=== PATIENT | male | born 2005 | race Caucasian/White ===

== ENCOUNTER 2025-03-16 13:14 | Inpatient (IN) ==
[2025-03-16] MEDS: SODIUM CHLORIDE 0.9% 1,000 ML IV ONE ×2 (13:58→18:15)
[2025-03-16] MEDS: ONDANSETRON INJ 2 MG/ML 2 ML VIAL IV STA ×2 (13:58→20:47)
[2025-03-16 15:01] LABS: Chlamydia pneumoniae PCR Not Detected (NotDetected); Coronavirus 229E PCR Not Detected (NotDetected); Coronavirus CoV-2 (COVID19)PCR Not Detected (NotDetected); Coronavirus HKU1 PCR Not Detected (NotDetected); Coronavirus NL63 PCR Not Detected (NotDetected); Coronavirus OC43PCR Not Detected (NotDetected); Human Metapneumovirus PCR Not Detected (NotDetected); Parainfluenza Virus 1 PCR Not Detected (NotDetected); Parainfluenza Virus 2 PCR Not Detected (NotDetected); Parainfluenza Virus 3 PCR Not Detected (NotDetected); Parainfluenza Virus 4 PCR Not Detected (NotDetected); Respiratory Syncytial VirusPCR Not Detected (NotDetected); Rhinovirus/Enterovirus PCR Not Detected (NotDetected)
[2025-03-16 15:20] LABS: Hematocrit (blood only) 44.6 % (42.0-52.0); Hemoglobin 15.0 g/dL (14.0-18.0); Immature Granulocytes # (auto) 0.11 K/uL (0.01-0.20); Immature Granulocytes % (auto) 0.5 %; Mean Corpuscular Hemoglobin 29.7 pg (25.0-34.0); Mean Corpuscular Volume 88.3 fL (80.0-100.0); Platelet Count 271 K/uL (130-400); RDW Standard Deviation 44.9 fL (36.4-46.3); Red Blood Count 5.05 M/uL (4.70-6.10); White Blood Count 22.17 K/ul (4.8-10.8)
[2025-03-16 15:46] LABS: Appearance Urine Clear (Clear); Bacteria Urine Automated None Seen (None Seen); Epithelial Cell Urine Auto 0-2 /hpf (0-2); Glucose Urine UA Negative (Negative); RBC Urine Automated >20 /hpf (0-2); WBC Urine Automated 0-5 /hpf (0-5)
[2025-03-16] MEDS: SODIUM CHLORIDE 0.9% 250 ML IV ONE (16:59)
[2025-03-16 17:29] LABS: Albumin Level 4.3 gm/dl (3.4-5.0); Anion Gap 21 (3-11); Bilirubin,Total 0.9 mg/dl (0.2-1.0); Calcium 8.0 mg/dl (8.6-10.3); Carbon Dioxide 13 mmol/L (21-32); Chloride 108 mmol/L (98-107); Potassium 3.6 mmol/L (3.5-5.1); Sodium 142 mmol/L (136-145)
[2025-03-16 17:37] LABS: Alanine Aminotransferase 23 U/L (7-52); Albumin Globulin Ratio 2.0 (0.9-2); Alkaline Phosphatase 83 U/L (34-104); Blood Urea Nitrogen 13 mg/dl (6-23); Globulin 2.2 gm/dl (2.5-4.0); Glucose 40 mg/dl (70-99(Fasting)); Total Protein 6.5 gm/dl (6.0-8.3)
[2025-03-16] MEDS: DEXTROSE 50% 50 ML SYRINGE IV ONE (17:48)
--- NOTE | 2025-03-16 17:48 | Emergency Department Note ---
Impression & Plan Hypotension, Sepsis, Nausea vomiting and diarrhea ED Provider Note CHIEF COMPLAINT: Vomiting, diarrhea x 2 days HISTORY OF PRESENTING ILLNESS: Patient is a 19-year-old male who presents to the emergency department today for complaints of vomiting and diarrhea x 2 days. He has a history of H neuromuscular disorders. He reports he has been unable to keep anything down since onset. He denies any sick contact. He denies eating any concerning food. He reports moving his bowels normally open to that point. Patient denies chest pain, sob, breathing difficulties, abdominal pain, headache, fevers/chills, blood in stool or urine, any recent illness, or any recent travel. REVIEW OF SYSTEMS: See HPI for pertinent positives and pertinent negatives. ALLERGIES: See below MEDICATIONS: See below PAST MEDICAL HISTORY: See below PHYSICAL EXAM: VITALS: Vitals are noted on the nurse's note and reviewed by myself. GENERAL: Non toxic, in no acute distress, non-diaphoretic. SKIN: Capillary refill <2 sec. EYES: PERRLA. EOMI. Conjunctivae without injection, sclerae without icterus. NOSE: Patent without discharge. MOUTH: Mucous membranes moist. Uvula midline. Airway patent. NECK: Supple without nuchal rigidity. HEART: Regular rate and rhythm without murmurs gallops or rubs. LUNGS: Clear to auscultation bilaterally without wheezes, rales or rhonchi. No retractions or accessory muscle use. ABDOMEN: Abdomen is abnormally shaped due to spine curvature. Difficulty in assessing. Positive bowel sounds x 4. Normal tympanic percussion. Soft, nontender to palpation. No masses or hepatosplenomegaly. Stallings sign negative. No CVA tenderness. No guarding, rigidity, or rebound tenderness. No focal RLQ or LLQ tenderness. MUSCULOSKELETAL: Neuromuscular disorder with severely curvature of spine. No gross musculoskeletal defects. NEURO: Patient was alert and oriented. No focal neurological deficits. DIFFERENTIAL DIAGNOSIS: Differential diagnosis includes appendicitis, diverticulitis, constipation, gastroenteritis, bowel obstruction, cholecystitis, appendicitis, inflammatory bowel disease, renal colic, PUD, biliary pathology, pancreatitis, mesenteric ischemia, aortic pathology, infection, genitourinary, UTI, perforated viscus, among others. ED COURSE AND MEDICAL DECISION MAKING: HISTORY FROM INDEPENDENT HISTORIAN: History was provided by the patient and his cousin who is at bedside and secondary historian. MONITOR: Continuous telemetry monitor: Order was placed for continuous telemetry monitor. Patient was placed on the telemetry monitor and continuous pulse ox. Patient was noted to be in normal sinus rhythm at an initial rate of 138 bpm per my interpretation. INTERPRETATION OF LABS: I interpreted the labs with full lab results as below in the lab section of this note. Laboratory results pertinent to the emergent complaint are discussed in the MDM section below. The patient was advised to follow up with their PCP and/or specialist(s) for further outpatient monitoring and management of any abnormal results. INTERPRETATION OF IMAGING: Imaging studies were interpreted by myself and read by radiology as per the imaging section of this note. The patient was advised to follow up with their PCP and/or specialist(s) for further outpatient management of any non-emergent abnormal findings. CHRONIC MEDICAL/SOCIAL CONDITIONS AFFECTING CARE: No social concerns were identified as barriers to patients care. ESCALATION OF CARE CONSIDERED: I considered admission on this patient due to leukocytosis, hypotension, tachycardia, sepsis, and no direct source of infection. CONSULTATIONS: I had a meaningful discussion about this patient with Dr. Monzon who agrees with my assessment and the treatment plan. I consulted with Nima Hickey PA-C who accepts the patient for admission. SUMMARY: I examined the patient for complaints of vomiting. A physical exam and history were performed. Nursing notes, EMR, and medication list were personally reviewed. On evaluation the patient reports vomiting X2 days. Denies any abdominal pain and agreed to defer CT abdomen at this time. Patient afebrile on arrival but tachycardic at 138 bpm and slightly hypotensive at 99/66. Given Zofran 4mg and 1L NSS with significant improvement in nausea but remained hypotensive. Patient given another 250ml bolus, again with no improvement in hypotension, yet worsening. Last BP noted to be 80/45. This was 3 hours after the initial bolus of 1250ml. Patient was given another 1L NSS with improvement in BP, HR. BP 119/51 and HR 114. Patient was showing no signs of poor perfusion, renal function was stable and was producing good urine. There was a delay in obtaining labs and running labs due to the patient poor venous access and needed labs redrawn multiple times. CMP resulted with a blood sugar of 40. Patient was asymptomatic, alert and oriented, and speaking. Patient was given some juice and was able to tolerate. Repeat blood sugar was only 47. Patient was given D10 250 mL liter bolus. Repeat blood sugar was then 141. CBC resulted with WBC of 22. Procalcitonin was normal. Lactate and blood cultures ordered but delay with drawing due to poor venous access. No anemia or thrombocytopenia. CMP otherwise showed no emergent findings. With the patient's elevated white blood cell count and no other source of infection CT scan of the abdomen pelvis and chest x-ray were ordered. CT of the abdomen and pelvis showed no acute findings. Chest x-ray showed normal chest. Urinalysis showed negative for nitrates, leukocytes, bacteria. With the patients presentation, leukocytosis, hypotension, and no direct source of infection I feel the patient will benefit from admission to the hospital for further workup and observation. I consulted with Nima Hickey PA-C who accepts the patient for admission. DIAGNOSIS: Vomiting, hypotension, sepsis, TREATMENT PLAN/DISCHARGE INSTRUCTIONS: Admit to hospitalist services. The chart was completed utilizing [employer] voice recognition software.Grammatical errors, random word insertions, pronoun errors, and incomplete sentences are an occasional consequence of this system due to software limitations, ambient noise, and hardware issues.Any formal questions or concerns about the content, text, or information contained within the body of this dictation should be directly addressed to the physician for clarification. Past Med/Surg History Problem List (Updated 03/17/25 @ 16:21 by BETTE Grullon) Spinal muscular atrophy Hypotension (Acute) Hypoglycemia Viral gastroenteritis Sepsis (Acute) Nausea vomiting and diarrhea (Acute) Social History Smoking Status: Never smoker Hx Alcohol Use: No Hx Substance Use: No Preferred Language: Macanese Communication Ability: Effective Primary Care Provider Required: No Beliefs That Will Affect Care: None Current Living Situation: Other Current Living Situation Comment: 24 hr nursing/aid care at private dorm room at [facility] Other Information That Helps Us Care for You: No Feels Safe at Home: Yes Safety Concerns: Feels Safe At This Time Assistive Devices: Glasses and Wheelchair Allergies Allergies Allergy/AdvReac Type Severity Reaction Status Date / Time No Known Allergies Allergy Unverified 03/16/25 15:30 Home Meds Home Medications Medication Instructions Recorded Confirmed risdiplam 0.75 mg/mL oral solution 0.75 mg PO UD 03/16/25 03/16/25 (Evrysdi) Previous Rx's Medication Instructions Recorded ondansetron 4 mg disintegrating 4 mg PO Q8H PRN nausea and 03/17/25 tablet vomiting #14 tabs Results & Data (ED) Vital Signs Vital Signs - 24 hr 03/16/25 16:34 03/16/25 18:00 03/16/25 18:30 Pulse Rate 133 H Pulse Rate [Apical] 141 H Pulse Rate [Left Finger] 125 H Pulse Rhythm [Apical] Regular Respiratory Rate 18 30 H 19 Respiratory Effort / Characteristics Non-Labored Non-Labored Spontaneous Respiratory Depth Normal Normal Respiratory Pattern Regular Blood Pressure 103/67 Blood Pressure [Right Arm] 96/59 L 80/45 L Blood Pressure Mean 76 Blood Pressure Mean [Right Arm] 71 56 Blood Pressure Position [Right Arm] Sitting Pulse Oximetry 96 96 96 Oxygen Delivery Method Room Air Room Air Room Air 03/16/25 18:32 Pulse Rate 134 H Pulse Rate [Apical] Pulse Rate [Left Finger] Pulse Rhythm [Apical] Respiratory Rate Respiratory Effort / Characteristics Respiratory Depth Respiratory Pattern Blood Pressure Blood Pressure [Right Arm] Blood Pressure Mean Blood Pressure Mean [Right Arm] Blood Pressure Position [Right Arm] Pulse Oximetry Oxygen Delivery Method Laboratory Data 03/17/25 05:31 03/17/25 05:31 Lab Results 03/16/25 03/16/25 03/16/25 Range/Units 13:53 15:06 15:28 WBC 22.17 H (4.8-10.8) K/ul RBC 5.05 (4.70-6.10) M/uL Hgb 15.0 (14.0-18.0) g/dL POC Hgb (14.0-18.0) g/dl Hct 44.6 (42.0-52.0) % POC Hct (42-52) % MCV 88.3 (80.0-100.0) fL MCH 29.7 (25.0-34.0) pg MCHC 33.6 (32.0-36.0) g/dL RDW Std Deviation 44.9 (36.4-46.3) fL RDW Coeff of Al 13.9 (11.5-14.5) % Plt Count 271 (130-400) K/uL MPV 11.4 (9.4-12.4) fL Immature Gran % (Auto) 0.5 % Neut % (Auto) 86.9 % Lymph % (Auto) 3.8 % Valley % (Auto) 8.1 % Eos % (Auto) 0.3 % Baso % (Auto) 0.4 % Neut # (Auto) 19.27 H (1.40-6.50) K/uL Lymph # (Auto) 0.84 L (1.20-3.40) K/uL Valley # (Auto) 1.80 H (0.11-0.59) K/uL Eos # (Auto) 0.07 (0.00-0.50) K/uL Baso # (Auto) 0.08 (0.00-0.20) K/uL Immature Gran # (Auto) 0.11 (0.01-0.20) K/uL POC Sodium (135-144) mmol/L Sodium Cancelled POC Potassium (3.3-5.0) mmol/L Potassium Cancelled POC Chloride (101-112) mmol/L Chloride Cancelled Carbon Dioxide Cancelled POC Total CO2 (24-31) mmol/L Anion Gap Cancelled POC Anion Gap (16-25) mmol/L POC BUN (7-18) mg/dl BUN Cancelled Creatinine Cancelled POC Creatinine (0.6-1.3) mg/dl Est Cr Clr Drug Dosing Cancelled eGFR Cancelled BUN/Creatinine Ratio Cancelled Glucose Cancelled POC Glucose (70-99) mg/dl POC Glucose (other) (70-99) mg/dl Lactate (0.4-2.0) mmol/L Calcium Cancelled POC Ioniz Calcium Lizette (1.12-1.32) mmol/l Magnesium (1.7-2.4) mg/dl Total Bilirubin Cancelled AST Cancelled ALT Cancelled Alkaline Phosphatase Cancelled C-Reactive Protein Cancelled Total Protein Cancelled Albumin Cancelled Globulin Cancelled Albumin/Globulin Ratio Cancelled Procalcitonin 0.15 (0-0.5) ng/ml Random Cortisol mcg/dl Urine Color Yellow Urine Appearance Clear (Clear) Urine pH 5.5 (4.5-7.5) Ur Specific [place] 1.029 (1.000-1.030) Urine Protein 1+ H (Negative) Urine Glucose (UA) Negative (Negative) Urine Ketones 4+ H (Negative) Urine Blood 2+ H (Negative) Urine Nitrite Negative (Negative) Urine Bilirubin Negative (Negative) Urine Urobilinogen Negative (Negative) Ur Leukocyte Esterase Negative (Negative) Urine WBC (Auto) 0-5 (0-5) /hpf Urine RBC (Auto) >20 H (0-2) /hpf U Hyaline Cast (Auto) 3-5 H (0-2) /lpf U Epithel Cells (Auto) 0-2 (0-2) /hpf Urine Bacteria (Auto) None Seen (None Seen) Urine Comment Adenovirus (PCR) Not Detected (NotDetected) B. pertussis DNA (PCR) Not Detected (NotDetected) B.parapertussis DNA PCR Not Detected (NotDetected) C. pneumoniae DNA (PCR) Not Detected (NotDetected) Coronavirus OC43 (PCR) Not Detected (NotDetected) Coronavirus HKU1 (PCR) Not Detected (NotDetected) Coronavirus 229E (PCR) Not Detected (NotDetected) SARS-CoV-2 (PCR) Not Detected (NotDetected) Coronavirus NL63 (PCR) Not Detected (NotDetected) Human Metapneumovir PCR Not Detected (NotDetected) Influenza Type A (PCR) Not Detected (NotDetected) Influenza Type B (PCR) Not Detected (NotDetected) M. pneumoniae (PCR) Not Detected (NotDetected) Parainfluenza 1 (PCR) Not Detected (NotDetected) Parainfluenza 2 (PCR) Not Detected (NotDetected) Parainfluenza 3 (PCR) Not Detected (NotDetected) Parainfluenza 4 (PCR) Not Detected (NotDetected) RSV (PCR) Not Detected (NotDetected) Entero/Rhino (PCR) Not Detected (NotDetected) 03/16/25 03/16/25 03/16/25 Range/Units 16:39 16:39 16:39 WBC (4.8-10.8) K/ul RBC (4.70-6.10) M/uL Hgb (14.0-18.0) g/dL POC Hgb (14.0-18.0) g/dl Hct (42.0-52.0) % POC Hct (42-52) % MCV (80.0-100.0) fL MCH (25.0-34.0) pg MCHC (32.0-36.0) g/dL RDW Std Deviation (36.4-46.3) fL RDW Coeff of Al (11.5-14.5) % Plt Count (130-400) K/uL MPV (9.4-12.4) fL Immature Gran % (Auto) % Neut % (Auto) % Lymph % (Auto) % [place] % (Auto) % Eos % (Auto) % Baso % (Auto) % Neut # (Auto) (1.40-6.50) K/uL Lymph # (Auto) (1.20-3.40) K/uL [place] # (Auto) (0.11-0.59) K/uL Eos # (Auto) (0.00-0.50) K/uL Baso # (Auto) (0.00-0.20) K/uL Immature Gran # (Auto) (0.01-0.20) K/uL POC Sodium (135-144) mmol/L Sodium Cancelled 142 POC Potassium (3.3-5.0) mmol/L Potassium Cancelled 3.6 POC Chloride (101-112) mmol/L Chloride Cancelled Carbon Dioxide POC Total CO2 (24-31) mmol/L Anion Gap POC Anion Gap (16-25) mmol/L POC BUN (7-18) mg/dl BUN Creatinine POC Creatinine (0.6-1.3) mg/dl Est Cr Clr Drug Dosing eGFR BUN/Creatinine Ratio Glucose POC Glucose (70-99) mg/dl POC Glucose (other) (70-99) mg/dl Lactate (0.4-2.0) mmol/L Calcium POC Ioniz Calcium Lizette (1.12-1.32) mmol/l Magnesium (1.7-2.4) mg/dl Total Bilirubin AST ALT Alkaline Phosphatase C-Reactive Protein Total Protein Albumin Globulin Albumin/Globulin Ratio Procalcitonin (0-0.5) ng/ml Random Cortisol mcg/dl Urine Color Urine Appearance (Clear) Urine pH (4.5-7.5) Ur Specific [place] (1.000-1.030) Urine Protein (Negative) Urine Glucose (UA) (Negative) Urine Ketones (Negative) Urine Blood (Negative) Urine Nitrite (Negative) Urine Bilirubin (Negative) Urine Urobilinogen (Negative) Ur Leukocyte Esterase (Negative) Urine WBC (Auto) (0-5) /hpf Urine RBC (Auto) (0-2) /hpf U Hyaline Cast (Auto) (0-2) /lpf U Epithel Cells (Auto) (0-2) /hpf Urine Bacteria (Auto) (None Seen) Urine Comment Adenovirus (PCR) (NotDetected) B. pertussis DNA (PCR) (NotDetected) B.parapertussis DNA PCR (NotDetected) C. pneumoniae DNA (PCR) (NotDetected) Coronavirus OC43 (PCR) (NotDetected) Coronavirus HKU1 (PCR) (NotDetected) Coronavirus 229E (PCR) (NotDetected) SARS-CoV-2 (PCR) (NotDetected) Coronavirus NL63 (PCR) (NotDetected) Human Metapneumovir PCR (NotDetected) Influenza Type A (PCR) (NotDetected) Influenza Type B (PCR) (NotDetected) M. pneumoniae (PCR) (NotDetected) Parainfluenza 1 (PCR) (NotDetected) Parainfluenza 2 (PCR) (NotDetected) Parainfluenza 3 (PCR) (NotDetected) Parainfluenza 4 (PCR) (NotDetected) RSV (PCR) (NotDetected) Entero/Rhino (PCR) (NotDetected) 03/16/25 03/16/25 03/16/25 Range/Units 16:39 16:39 16:39 WBC (4.8-10.8) K/ul RBC (4.70-6.10) M/uL Hgb (14.0-18.0) g/dL POC Hgb (14.0-18.0) g/dl Hct (42.0-52.0) % POC Hct (42-52) % MCV (80.0-100.0) fL MCH (25.0-34.0) pg MCHC (32.0-36.0) g/dL RDW Std Deviation (36.4-46.3) fL RDW Coeff of Al (11.5-14.5) % Plt Count (130-400) K/uL MPV (9.4-12.4) fL Immature Gran % (Auto) % Neut % (Auto) % Lymph % (Auto) % [place] % (Auto) % Eos % (Auto) % Baso % (Auto) % Neut # (Auto) (1.40-6.50) K/uL Lymph # (Auto) (1.20-3.40) K/uL [place] # (Auto) (0.11-0.59) K/uL Eos # (Auto) (0.00-0.50) K/uL Baso # (Auto) (0.00-0.20) K/uL Immature Gran # (Auto) (0.01-0.20) K/uL POC Sodium (135-144) mmol/L Sodium POC Potassium (3.3-5.0) mmol/L Potassium POC Chloride (101-112) mmol/L Chloride 108 H Carbon Dioxide Cancelled 13 L POC Total CO2 (24-31) mmol/L Anion Gap Cancelled 21 H POC Anion Gap (16-25) mmol/L POC BUN (7-18) mg/dl BUN Cancelled Creatinine POC Creatinine (0.6-1.3) mg/dl Est Cr Clr Drug Dosing eGFR BUN/Creatinine Ratio Glucose POC Glucose (70-99) mg/dl POC Glucose (other) (70-99) mg/dl Lactate (0.4-2.0) mmol/L Calcium POC Ioniz Calcium Lizette (1.12-1.32) mmol/l Magnesium (1.7-2.4) mg/dl Total Bilirubin AST ALT Alkaline Phosphatase C-Reactive Protein Total Protein Albumin Globulin Albumin/Globulin Ratio Procalcitonin (0-0.5) ng/ml Random Cortisol mcg/dl Urine Color Urine Appearance (Clear) Urine pH (4.5-7.5) Ur Specific [place] (1.000-1.030) Urine Protein (Negative) Urine Glucose (UA) (Negative) Urine Ketones (Negative) Urine Blood (Negative) Urine Nitrite (Negative) Urine Bilirubin (Negative) Urine Urobilinogen (Negative) Ur Leukocyte Esterase (Negative) Urine WBC (Auto) (0-5) /hpf Urine RBC (Auto) (0-2) /hpf U Hyaline Cast (Auto) (0-2) /lpf U Epithel Cells (Auto) (0-2) /hpf Urine Bacteria (Auto) (None Seen) Urine Comment Adenovirus (PCR) (NotDetected) B. pertussis DNA (PCR) (NotDetected) B.parapertussis DNA PCR (NotDetected) C. pneumoniae DNA (PCR) (NotDetected) Coronavirus OC43 (PCR) (NotDetected) Coronavirus HKU1 (PCR) (NotDetected) Coronavirus 229E (PCR) (NotDetected) SARS-CoV-2 (PCR) (NotDetected) Coronavirus NL63 (PCR) (NotDetected) Human Metapneumovir PCR (NotDetected) Influenza Type A (PCR) (NotDetected) Influenza Type B (PCR) (NotDetected) M. pneumoniae (PCR) (NotDetected) Parainfluenza 1 (PCR) (NotDetected) Parainfluenza 2 (PCR) (NotDetected) Parainfluenza 3 (PCR) (NotDetected) Parainfluenza 4 (PCR) (NotDetected) RSV (PCR) (NotDetected) Entero/Rhino (PCR) (NotDetected) 03/16/25 03/16/25 03/16/25 Range/Units 16:39 16:39 16:39 WBC (4.8-10.8) K/ul RBC (4.70-6.10) M/uL Hgb (14.0-18.0) g/dL POC Hgb (14.0-18.0) g/dl Hct (42.0-52.0) % POC Hct (42-52) % MCV (80.0-100.0) fL MCH (25.0-34.0) pg MCHC (32.0-36.0) g/dL RDW Std Deviation (36.4-46.3) fL RDW Coeff of Al (11.5-14.5) % Plt Count (130-400) K/uL MPV (9.4-12.4) fL Immature Gran % (Auto) % Neut % (Auto) % Lymph % (Auto) % [place] % (Auto) % Eos % (Auto) % Baso % (Auto) % Neut # (Auto) (1.40-6.50) K/uL Lymph # (Auto) (1.20-3.40) K/uL [place] # (Auto) (0.11-0.59) K/uL Eos # (Auto) (0.00-0.50) K/uL Baso # (Auto) (0.00-0.20) K/uL Immature Gran # (Auto) (0.01-0.20) K/uL POC Sodium (135-144) mmol/L Sodium POC Potassium (3.3-5.0) mmol/L Potassium POC Chloride (101-112) mmol/L Chloride Carbon Dioxide POC Total CO2 (24-31) mmol/L Anion Gap POC Anion Gap (16-25) mmol/L POC BUN (7-18) mg/dl BUN 13 Creatinine Cancelled < 0.20 L POC Creatinine (0.6-1.3) mg/dl Est Cr Clr Drug Dosing Cancelled Not Reportable eGFR Cancelled BUN/Creatinine Ratio Glucose POC Glucose (70-99) mg/dl POC Glucose (other) (70-99) mg/dl Lactate (0.4-2.0) mmol/L Calcium POC Ioniz Calcium [place]ette (1.12-1.32) mmol/l Magnesium (1.7-2.4) mg/dl Total Bilirubin AST ALT Alkaline Phosphatase C-Reactive Protein Total Protein Albumin Globulin Albumin/Globulin Ratio Procalcitonin (0-0.5) ng/ml Random Cortisol mcg/dl Urine Color Urine Appearance (Clear) Urine pH (4.5-7.5) Ur Specific [place] (1.000-1.030) Urine Protein (Negative) Urine Glucose (UA) (Negative) Urine Ketones (Negative) Urine Blood (Negative) Urine Nitrite (Negative) Urine Bilirubin (Negative) Urine Urobilinogen (Negative) Ur Leukocyte Esterase (Negative) Urine WBC (Auto) (0-5) /hpf Urine RBC (Auto) (0-2) /hpf U Hyaline Cast (Auto) (0-2) /lpf U Epithel Cells (Auto) (0-2) /hpf Urine Bacteria (Auto) (None Seen) Urine Comment Adenovirus (PCR) (NotDetected) B. pertussis DNA (PCR) (NotDetected) B.parapertussis DNA PCR (NotDetected) C. pneumoniae DNA (PCR) (NotDetected) Coronavirus OC43 (PCR) (NotDetected) Coronavirus HKU1 (PCR) (NotDetected) Coronavirus 229E (PCR) (NotDetected) SARS-CoV-2 (PCR) (NotDetected) Coronavirus NL63 (PCR) (NotDetected) Human Metapneumovir PCR (NotDetected) Influenza Type A (PCR) (NotDetected) Influenza Type B (PCR) (NotDetected) M. pneumoniae (PCR) (NotDetected) Parainfluenza 1 (PCR) (NotDetected) Parainfluenza 2 (PCR) (NotDetected) Parainfluenza 3 (PCR) (NotDetected) Parainfluenza 4 (PCR) (NotDetected) RSV (PCR) (NotDetected) Entero/Rhino (PCR) (NotDetected) 03/16/25 03/16/25 03/16/25 Range/Units 16:39 16:39 16:39 WBC (4.8-10.8) K/ul RBC (4.70-6.10) M/uL Hgb (14.0-18.0) g/dL POC Hgb (14.0-18.0) g/dl Hct (42.0-52.0) % POC Hct (42-52) % MCV (80.0-100.0) fL MCH (25.0-34.0) pg MCHC (32.0-36.0) g/dL RDW Std Deviation (36.4-46.3) fL RDW Coeff of Al (11.5-14.5) % Plt Count (130-400) K/uL MPV (9.4-12.4) fL Immature Gran % (Auto) % Neut % (Auto) % Lymph % (Auto) % [place] % (Auto) % Eos % (Auto) % Baso % (Auto) % Neut # (Auto) (1.40-6.50) K/uL Lymph # (Auto) (1.20-3.40) K/uL [place] # (Auto) (0.11-0.59) K/uL Eos # (Auto) (0.00-0.50) K/uL Baso # (Auto) (0.00-0.20) K/uL Immature Gran # (Auto) (0.01-0.20) K/uL POC Sodium (135-144) mmol/L Sodium POC Potassium (3.3-5.0) mmol/L Potassium POC Chloride (101-112) mmol/L Chloride Carbon Dioxide POC Total CO2 (24-31) mmol/L Anion Gap POC Anion Gap (16-25) mmol/L POC BUN (7-18) mg/dl BUN Creatinine POC Creatinine (0.6-1.3) mg/dl Est Cr Clr Drug Dosing eGFR Not Reportable BUN/Creatinine Ratio Cancelled TNP Glucose Cancelled 40 L* POC Glucose (70-99) mg/dl POC Glucose (other) (70-99) mg/dl Lactate (0.4-2.0) mmol/L Calcium Cancelled POC Ioniz Calcium [place]ette (1.12-1.32) mmol/l Magnesium (1.7-2.4) mg/dl Total Bilirubin AST ALT Alkaline Phosphatase C-Reactive Protein Total Protein Albumin Globulin Albumin/Globulin Ratio Procalcitonin (0-0.5) ng/ml Random Cortisol mcg/dl Urine Color Urine Appearance (Clear) Urine pH (4.5-7.5) Ur Specific [place] (1.000-1.030) Urine Protein (Negative) Urine Glucose (UA) (Negative) Urine Ketones (Negative) Urine Blood (Negative) Urine Nitrite (Negative) Urine Bilirubin (Negative) Urine Urobilinogen (Negative) Ur Leukocyte Esterase (Negative) Urine WBC (Auto) (0-5) /hpf Urine RBC (Auto) (0-2) /hpf U Hyaline Cast (Auto) (0-2) /lpf U Epithel Cells (Auto) (0-2) /hpf Urine Bacteria (Auto) (None Seen) Urine Comment Adenovirus (PCR) (NotDetected) B. pertussis DNA (PCR) (NotDetected) B.parapertussis DNA PCR (NotDetected) C. pneumoniae DNA (PCR) (NotDetected) Coronavirus OC43 (PCR) (NotDetected) Coronavirus HKU1 (PCR) (NotDetected) Coronavirus 229E (PCR) (NotDetected) SARS-CoV-2 (PCR) (NotDetected) Coronavirus NL63 (PCR) (NotDetected) Human Metapneumovir PCR (NotDetected) Influenza Type A (PCR) (NotDetected) Influenza Type B (PCR) (NotDetected) M. pneumoniae (PCR) (NotDetected) Parainfluenza 1 (PCR) (NotDetected) Parainfluenza 2 (PCR) (NotDetected) Parainfluenza 3 (PCR) (NotDetected) Parainfluenza 4 (PCR) (NotDetected) RSV (PCR) (NotDetected) Entero/Rhino (PCR) (NotDetected) 03/16/25 03/16/25 03/16/25 Range/Units 16:39 16:39 16:39 WBC (4.8-10.8) K/ul RBC (4.70-6.10) M/uL Hgb (14.0-18.0) g/dL POC Hgb (14.0-18.0) g/dl Hct (42.0-52.0) % POC Hct (42-52) % MCV (80.0-100.0) fL MCH (25.0-34.0) pg MCHC (32.0-36.0) g/dL RDW Std Deviation (36.4-46.3) fL RDW Coeff of Al (11.5-14.5) % Plt Count (130-400) K/uL MPV (9.4-12.4) fL Immature Gran % (Auto) % Neut % (Auto) % Lymph % (Auto) % [place] % (Auto) % Eos % (Auto) % Baso % (Auto) % Neut # (Auto) (1.40-6.50) K/uL Lymph # (Auto) (1.20-3.40) K/uL [place] # (Auto) (0.11-0.59) K/uL Eos # (Auto) (0.00-0.50) K/uL Baso # (Auto) (0.00-0.20) K/uL Immature Gran # (Auto) (0.01-0.20) K/uL POC Sodium (135-144) mmol/L Sodium POC Potassium (3.3-5.0) mmol/L Potassium POC Chloride (101-112) mmol/L Chloride Carbon Dioxide POC Total CO2 (24-31) mmol/L Anion Gap POC Anion Gap (16-25) mmol/L POC BUN (7-18) mg/dl BUN Creatinine POC Creatinine (0.6-1.3) mg/dl Est Cr Clr Drug Dosing eGFR BUN/Creatinine Ratio Glucose POC Glucose (70-99) mg/dl POC Glucose (other) (70-99) mg/dl Lactate (0.4-2.0) mmol/L Calcium 8.0 L POC Ioniz Calcium [place] (1.12-1.32) mmol/l Magnesium (1.7-2.4) mg/dl Total Bilirubin Cancelled 0.9 AST Cancelled 20 ALT Cancelled Alkaline Phosphatase C-Reactive Protein Total Protein Albumin Globulin Albumin/Globulin Ratio Procalcitonin (0-0.5) ng/ml Random Cortisol mcg/dl Urine Color Urine Appearance (Clear) Urine pH (4.5-7.5) Ur Specific [place] (1.000-1.030) Urine Protein (Negative) Urine Glucose (UA) (Negative) Urine Ketones (Negative) Urine Blood (Negative) Urine Nitrite (Negative) Urine Bilirubin (Negative) Urine Urobilinogen (Negative) Ur Leukocyte Esterase (Negative) Urine WBC (Auto) (0-5) /hpf Urine RBC (Auto) (0-2) /hpf U Hyaline Cast (Auto) (0-2) /lpf U Epithel Cells (Auto) (0-2) /hpf Urine Bacteria (Auto) (None Seen) Urine Comment Adenovirus (PCR) (NotDetected) B. pertussis DNA (PCR) (NotDetected) B.parapertussis DNA PCR (NotDetected) C. pneumoniae DNA (PCR) (NotDetected) Coronavirus OC43 (PCR) (NotDetected) Coronavirus HKU1 (PCR) (NotDetected) Coronavirus 229E (PCR) (NotDetected) SARS-CoV-2 (PCR) (NotDetected) Coronavirus NL63 (PCR) (NotDetected) Human Metapneumovir PCR (NotDetected) Influenza Type A (PCR) (NotDetected) Influenza Type B (PCR) (NotDetected) M. pneumoniae (PCR) (NotDetected) Parainfluenza 1 (PCR) (NotDetected) Parainfluenza 2 (PCR) (NotDetected) Parainfluenza 3 (PCR) (NotDetected) Parainfluenza 4 (PCR) (NotDetected) RSV (PCR) (NotDetected) Entero/Rhino (PCR) (NotDetected) 03/16/25 03/16/25 03/16/25 Range/Units 16:39 16:39 16:39 WBC (4.8-10.8) K/ul RBC (4.70-6.10) M/uL Hgb (14.0-18.0) g/dL POC Hgb (14.0-18.0) g/dl Hct (42.0-52.0) % POC Hct (42-52) % MCV (80.0-100.0) fL MCH (25.0-34.0) pg MCHC (32.0-36.0) g/dL RDW Std Deviation (36.4-46.3) fL RDW Coeff of Al (11.5-14.5) % Plt Count (130-400) K/uL MPV (9.4-12.4) fL Immature Gran % (Auto) % Neut % (Auto) % Lymph % (Auto) % [place] % (Auto) % Eos % (Auto) % Baso % (Auto) % Neut # (Auto) (1.40-6.50) K/uL Lymph # (Auto) (1.20-3.40) K/uL [place] # (Auto) (0.11-0.59) K/uL Eos # (Auto) (0.00-0.50) K/uL Baso # (Auto) (0.00-0.20) K/uL Immature Gran # (Auto) (0.01-0.20) K/uL POC Sodium (135-144) mmol/L Sodium POC Potassium (3.3-5.0) mmol/L Potassium POC Chloride (101-112) mmol/L Chloride Carbon Dioxide POC Total CO2 (24-31) mmol/L Anion Gap POC Anion Gap (16-25) mmol/L POC BUN (7-18) mg/dl BUN Creatinine POC Creatinine (0.6-1.3) mg/dl Est Cr Clr Drug Dosing eGFR BUN/Creatinine Ratio Glucose POC Glucose (70-99) mg/dl POC Glucose (other) (70-99) mg/dl Lactate (0.4-2.0) mmol/L Calcium POC Ioniz Calcium Lizette (1.12-1.32) mmol/l Magnesium (1.7-2.4) mg/dl Total Bilirubin AST ALT 23 Alkaline Phosphatase Cancelled 83 C-Reactive Protein Cancelled 1.67 H Total Protein Cancelled Albumin Globulin Albumin/Globulin Ratio Procalcitonin (0-0.5) ng/ml Random Cortisol mcg/dl Urine Color Urine Appearance (Clear) Urine pH (4.5-7.5) Ur Specific [place] (1.000-1.030) Urine Protein (Negative) Urine Glucose (UA) (Negative) Urine Ketones (Negative) Urine Blood (Negative) Urine Nitrite (Negative) Urine Bilirubin (Negative) Urine Urobilinogen (Negative) Ur Leukocyte Esterase (Negative) Urine WBC (Auto) (0-5) /hpf Urine RBC (Auto) (0-2) /hpf U Hyaline Cast (Auto) (0-2) /lpf U Epithel Cells (Auto) (0-2) /hpf Urine Bacteria (Auto) (None Seen) Urine Comment Adenovirus (PCR) (NotDetected) B. pertussis DNA (PCR) (NotDetected) B.parapertussis DNA PCR (NotDetected) C. pneumoniae DNA (PCR) (NotDetected) Coronavirus OC43 (PCR) (NotDetected) Coronavirus HKU1 (PCR) (NotDetected) Coronavirus 229E (PCR) (NotDetected) SARS-CoV-2 (PCR) (NotDetected) Coronavirus NL63 (PCR) (NotDetected) Human Metapneumovir PCR (NotDetected) Influenza Type A (PCR) (NotDetected) Influenza Type B (PCR) (NotDetected) M. pneumoniae (PCR) (NotDetected) Parainfluenza 1 (PCR) (NotDetected) Parainfluenza 2 (PCR) (NotDetected) Parainfluenza 3 (PCR) (NotDetected) Parainfluenza 4 (PCR) (NotDetected) RSV (PCR) (NotDetected) Entero/Rhino (PCR) (NotDetected) 03/16/25 03/16/25 03/16/25 Range/Units 16:39 16:39 16:39 WBC (4.8-10.8) K/ul RBC (4.70-6.10) M/uL Hgb (14.0-18.0) g/dL POC Hgb (14.0-18.0) g/dl Hct (42.0-52.0) % POC Hct (42-52) % MCV (80.0-100.0) fL MCH (25.0-34.0) pg MCHC (32.0-36.0) g/dL RDW Std Deviation (36.4-46.3) fL RDW Coeff of Al (11.5-14.5) % Plt Count (130-400) K/uL MPV (9.4-12.4) fL Immature Gran % (Auto) % Neut % (Auto) % Lymph % (Auto) % [place] % (Auto) % Eos % (Auto) % Baso % (Auto) % Neut # (Auto) (1.40-6.50) K/uL Lymph # (Auto) (1.20-3.40) K/uL [place] # (Auto) (0.11-0.59) K/uL Eos # (Auto) (0.00-0.50) K/uL Baso # (Auto) (0.00-0.20) K/uL Immature Gran # (Auto) (0.01-0.20) K/uL POC Sodium (135-144) mmol/L Sodium POC Potassium (3.3-5.0) mmol/L Potassium POC Chloride (101-112) mmol/L Chloride Carbon Dioxide POC Total CO2 (24-31) mmol/L Anion Gap POC Anion Gap (16-25) mmol/L POC BUN (7-18) mg/dl BUN Creatinine POC Creatinine (0.6-1.3) mg/dl Est Cr Clr Drug Dosing eGFR BUN/Creatinine Ratio Glucose POC Glucose (70-99) mg/dl POC Glucose (other) (70-99) mg/dl Lactate (0.4-2.0) mmol/L Calcium POC Ioniz Calcium [place] (1.12-1.32) mmol/l Magnesium (1.7-2.4) mg/dl Total Bilirubin AST ALT Alkaline Phosphatase C-Reactive Protein Total Protein 6.5 Albumin Cancelled 4.3 Globulin Cancelled 2.2 L Albumin/Globulin Ratio Cancelled Procalcitonin (0-0.5) ng/ml Random Cortisol mcg/dl Urine Color Urine Appearance (Clear) Urine pH (4.5-7.5) Ur Specific [place] (1.000-1.030) Urine Protein (Negative) Urine Glucose (UA) (Negative) Urine Ketones (Negative) Urine Blood (Negative) Urine Nitrite (Negative) Urine Bilirubin (Negative) Urine Urobilinogen (Negative) Ur Leukocyte Esterase (Negative) Urine WBC (Auto) (0-5) /hpf Urine RBC (Auto) (0-2) /hpf U Hyaline Cast (Auto) (0-2) /lpf U Epithel Cells (Auto) (0-2) /hpf Urine Bacteria (Auto) (None Seen) Urine Comment Adenovirus (PCR) (NotDetected) B. pertussis DNA (PCR) (NotDetected) B.parapertussis DNA PCR (NotDetected) C. pneumoniae DNA (PCR) (NotDetected) Coronavirus OC43 (PCR) (NotDetected) Coronavirus HKU1 (PCR) (NotDetected) Coronavirus 229E (PCR) (NotDetected) SARS-CoV-2 (PCR) (NotDetected) Coronavirus NL63 (PCR) (NotDetected) Human Metapneumovir PCR (NotDetected) Influenza Type A (PCR) (NotDetected) Influenza Type B (PCR) (NotDetected) M. pneumoniae (PCR) (NotDetected) Parainfluenza 1 (PCR) (NotDetected) Parainfluenza 2 (PCR) (NotDetected) Parainfluenza 3 (PCR) (NotDetected) Parainfluenza 4 (PCR) (NotDetected) RSV (PCR) (NotDetected) Entero/Rhino (PCR) (NotDetected) 03/16/25 03/16/25 03/16/25 Range/Units 16:39 17:19 17:23 WBC (4.8-10.8) K/ul RBC (4.70-6.10) M/uL Hgb (14.0-18.0) g/dL POC Hgb 13.3 L (14.0-18.0) g/dl Hct (42.0-52.0) % POC Hct 39 L (42-52) % MCV (80.0-100.0) fL MCH (25.0-34.0) pg MCHC (32.0-36.0) g/dL RDW Std Deviation (36.4-46.3) fL RDW Coeff of Al (11.5-14.5) % Plt Count (130-400) K/uL MPV (9.4-12.4) fL Immature Gran % (Auto) % Neut % (Auto) % Lymph % (Auto) % [place] % (Auto) % Eos % (Auto) % Baso % (Auto) % Neut # (Auto) (1.40-6.50) K/uL Lymph # (Auto) (1.20-3.40) K/uL [place] # (Auto) (0.11-0.59) K/uL Eos # (Auto) (0.00-0.50) K/uL Baso # (Auto) (0.00-0.20) K/uL Immature Gran # (Auto) (0.01-0.20) K/uL POC Sodium 143 (135-144) mmol/L Sodium POC Potassium 3.4 (3.3-5.0) mmol/L Potassium POC Chloride 110 (101-112) mmol/L Chloride Carbon Dioxide POC Total CO2 15 L (24-31) mmol/L Anion Gap POC Anion Gap 22.0 (16-25) mmol/L POC BUN 10 (7-18) mg/dl BUN Creatinine POC Creatinine < 0.2 L (0.6-1.3) mg/dl Est Cr Clr Drug Dosing eGFR BUN/Creatinine Ratio Glucose POC Glucose (70-99) mg/dl POC Glucose (other) 40 L* (70-99) mg/dl Lactate (0.4-2.0) mmol/L Calcium POC Ioniz Calcium [place] 0.96 L (1.12-1.32) mmol/l Magnesium 2.1 (1.7-2.4) mg/dl Total Bilirubin AST ALT Alkaline Phosphatase C-Reactive Protein Total Protein Albumin Globulin Albumin/Globulin Ratio 2.0 Procalcitonin (0-0.5) ng/ml Random Cortisol 35.82 mcg/dl Urine Color Urine Appearance (Clear) Urine pH (4.5-7.5) Ur Specific [place] (1.000-1.030) Urine Protein (Negative) Urine Glucose (UA) (Negative) Urine Ketones (Negative) Urine Blood (Negative) Urine Nitrite (Negative) Urine Bilirubin (Negative) Urine Urobilinogen (Negative) Ur Leukocyte Esterase (Negative) Urine WBC (Auto) (0-5) /hpf Urine RBC (Auto) (0-2) /hpf U Hyaline Cast (Auto) (0-2) /lpf U Epithel Cells (Auto) (0-2) /hpf Urine Bacteria (Auto) (None Seen) Urine Comment Adenovirus (PCR) (NotDetected) B. pertussis DNA (PCR) (NotDetected) B.parapertussis DNA PCR (NotDetected) C. pneumoniae DNA (PCR) (NotDetected) Coronavirus OC43 (PCR) (NotDetected) Coronavirus HKU1 (PCR) (NotDetected) Coronavirus 229E (PCR) (NotDetected) SARS-CoV-2 (PCR) (NotDetected) Coronavirus NL63 (PCR) (NotDetected) Human Metapneumovir PCR (NotDetected) Influenza Type A (PCR) (NotDetected) Influenza Type B (PCR) (NotDetected) M. pneumoniae (PCR) (NotDetected) Parainfluenza 1 (PCR) (NotDetected) Parainfluenza 2 (PCR) (NotDetected) Parainfluenza 3 (PCR) (NotDetected) Parainfluenza 4 (PCR) (NotDetected) RSV (PCR) (NotDetected) Entero/Rhino (PCR) (NotDetected) 03/16/25 03/16/25 03/16/25 Range/Units 17:27 17:55 18:10 WBC (4.8-10.8) K/ul RBC (4.70-6.10) M/uL Hgb (14.0-18.0) g/dL POC Hgb (14.0-18.0) g/dl Hct (42.0-52.0) % POC Hct (42-52) % MCV (80.0-100.0) fL MCH (25.0-34.0) pg MCHC (32.0-36.0) g/dL RDW Std Deviation (36.4-46.3) fL RDW Coeff of Al (11.5-14.5) % Plt Count (130-400) K/uL MPV (9.4-12.4) fL Immature Gran % (Auto) % Neut % (Auto) % Lymph % (Auto) % [place] % (Auto) % Eos % (Auto) % Baso % (Auto) % Neut # (Auto) (1.40-6.50) K/uL Lymph # (Auto) (1.20-3.40) K/uL [place] # (Auto) (0.11-0.59) K/uL Eos # (Auto) (0.00-0.50) K/uL Baso # (Auto) (0.00-0.20) K/uL Immature Gran # (Auto) (0.01-0.20) K/uL POC Sodium (135-144) mmol/L Sodium POC Potassium (3.3-5.0) mmol/L Potassium POC Chloride (101-112) mmol/L Chloride Carbon Dioxide POC Total CO2 (24-31) mmol/L Anion Gap POC Anion Gap (16-25) mmol/L POC BUN (7-18) mg/dl BUN Creatinine POC Creatinine (0.6-1.3) mg/dl Est Cr Clr Drug Dosing eGFR BUN/Creatinine Ratio Glucose POC Glucose 41 L* 46 L* (70-99) mg/dl POC Glucose (other) (70-99) mg/dl Lactate 1.0 (0.4-2.0) mmol/L Calcium POC Ioniz Calcium [place] (1.12-1.32) mmol/l Magnesium (1.7-2.4) mg/dl Total Bilirubin AST ALT Alkaline Phosphatase C-Reactive Protein Total Protein Albumin Globulin Albumin/Globulin Ratio Procalcitonin (0-0.5) ng/ml Random Cortisol mcg/dl Urine Color Urine Appearance (Clear) Urine pH (4.5-7.5) Ur Specific [place] (1.000-1.030) Urine Protein (Negative) Urine Glucose (UA) (Negative) Urine Ketones (Negative) Urine Blood (Negative) Urine Nitrite (Negative) Urine Bilirubin (Negative) Urine Urobilinogen (Negative) Ur Leukocyte Esterase (Negative) Urine WBC (Auto) (0-5) /hpf Urine RBC (Auto) (0-2) /hpf U Hyaline Cast (Auto) (0-2) /lpf U Epithel Cells (Auto) (0-2) /hpf Urine Bacteria (Auto) (None Seen) Urine Comment Adenovirus (PCR) (NotDetected) B. pertussis DNA (PCR) (NotDetected) B.parapertussis DNA PCR (NotDetected) C. pneumoniae DNA (PCR) (NotDetected) Coronavirus OC43 (PCR) (NotDetected) Coronavirus HKU1 (PCR) (NotDetected) Coronavirus 229E (PCR) (NotDetected) SARS-CoV-2 (PCR) (NotDetected) Coronavirus NL63 (PCR) (NotDetected) Human Metapneumovir PCR (NotDetected) Influenza Type A (PCR) (NotDetected) Influenza Type B (PCR) (NotDetected) M. pneumoniae (PCR) (NotDetected) Parainfluenza 1 (PCR) (NotDetected) Parainfluenza 2 (PCR) (NotDetected) Parainfluenza 3 (PCR) (NotDetected) Parainfluenza 4 (PCR) (NotDetected) RSV (PCR) (NotDetected) Entero/Rhino (PCR) (NotDetected) 03/16/25 Range/Units 18:39 WBC (4.8-10.8) K/ul RBC (4.70-6.10) M/uL Hgb (14.0-18.0) g/dL POC Hgb (14.0-18.0) g/dl Hct (42.0-52.0) % POC Hct (42-52) % MCV (80.0-100.0) fL MCH (25.0-34.0) pg MCHC (32.0-36.0) g/dL RDW Std Deviation (36.4-46.3) fL RDW Coeff of Al (11.5-14.5) % Plt Count (130-400) K/uL MPV (9.4-12.4) fL Immature Gran % (Auto) % Neut % (Auto) % Lymph % (Auto) % [place] % (Auto) % Eos % (Auto) % Baso % (Auto) % Neut # (Auto) (1.40-6.50) K/uL Lymph # (Auto) (1.20-3.40) K/uL [place] # (Auto) (0.11-0.59) K/uL Eos # (Auto) (0.00-0.50) K/uL Baso # (Auto) (0.00-0.20) K/uL Immature Gran # (Auto) (0.01-0.20) K/uL POC Sodium (135-144) mmol/L Sodium POC Potassium (3.3-5.0) mmol/L Potassium POC Chloride (101-112) mmol/L Chloride Carbon Dioxide POC Total CO2 (24-31) mmol/L Anion Gap POC Anion Gap (16-25) mmol/L POC BUN (7-18) mg/dl BUN Creatinine POC Creatinine (0.6-1.3) mg/dl Est Cr Clr Drug Dosing eGFR BUN/Creatinine Ratio Glucose POC Glucose 141 H (70-99) mg/dl POC Glucose (other) (70-99) mg/dl Lactate (0.4-2.0) mmol/L Calcium POC Ioniz Calcium [place] (1.12-1.32) mmol/l Magnesium (1.7-2.4) mg/dl Total Bilirubin AST ALT Alkaline Phosphatase C-Reactive Protein Total Protein Albumin Globulin Albumin/Globulin Ratio Procalcitonin (0-0.5) ng/ml Random Cortisol mcg/dl Urine Color Urine Appearance (Clear) Urine pH (4.5-7.5) Ur Specific [place] (1.000-1.030) Urine Protein (Negative) Urine Glucose (UA) (Negative) Urine Ketones (Negative) Urine Blood (Negative) Urine Nitrite (Negative) Urine Bilirubin (Negative) Urine Urobilinogen (Negative) Ur Leukocyte Esterase (Negative) Urine WBC (Auto) (0-5) /hpf Urine RBC (Auto) (0-2) /hpf U Hyaline Cast (Auto) (0-2) /lpf U Epithel Cells (Auto) (0-2) /hpf Urine Bacteria (Auto) (None Seen) Urine Comment Adenovirus (PCR) (NotDetected) B. pertussis DNA (PCR) (NotDetected) B.parapertussis DNA PCR (NotDetected) C. pneumoniae DNA (PCR) (NotDetected) Coronavirus OC43 (PCR) (NotDetected) Coronavirus HKU1 (PCR) (NotDetected) Coronavirus 229E (PCR) (NotDetected) SARS-CoV-2 (PCR) (NotDetected) Coronavirus NL63 (PCR) (NotDetected) Human Metapneumovir PCR (NotDetected) Influenza Type A (PCR) (NotDetected) Influenza Type B (PCR) (NotDetected) M. pneumoniae (PCR) (NotDetected) Parainfluenza 1 (PCR) (NotDetected) Parainfluenza 2 (PCR) (NotDetected) Parainfluenza 3 (PCR) (NotDetected) Parainfluenza 4 (PCR) (NotDetected) RSV (PCR) (NotDetected) Entero/Rhino (PCR) (NotDetected) Administered Medications Enoxaparin Sodium (Enoxaparin Inj 30 Mg/0.3 Ml Syr) 30 mg SQ Q24H [facility] Stop: 04/16/25 08:59 Last Admin: 03/17/25 08:40 Dose: Not Given Documented By: VALERIE Dextrose/Lactated Ringer's (D5w And Lactated Ringers) 1,000 mls @ 80 mls/hr IV .[id number] [facility] Stop: 03/19/25 20:29 Last Admin: 03/17/25 10:35 Dose: 80 mls/hr Documented By: Infusion: 03/17/25 09:17 Dose: Infused Documented By: Admin: 03/16/25 20:47 Dose: 80 mls/hr Documented By: SIOMARA Piperacillin Sod/Tazobactam Sod (Zosyn) 4.5 gm in 100 mls @ 25 mls/hr IV Q8H [facility]; Protocol Stop: 03/27/25 03:59 Last Infusion: 03/17/25 15:36 Dose: Infused Documented By: Admin: 03/17/25 11:22 Dose: 25 mls/hr Documented By: Infusion: 03/17/25 07:56 Dose: Infused Documented By: Admin: 03/17/25 03:41 Dose: 25 mls/hr Documented By: SIOMARA Risdiplam (Risdiplam 0.75 Mg/Ml Soln) 5 mg PO DAILY JOE Stop: 04/16/25 08:59 Last Admin: 03/17/25 10:33 Dose: 5 mg Documented By: VALERIE Discontinued Medications Dextrose (Dextrose 50% 50 Ml Syringe) Confirm Administered Dose 50 ml IV .STK- MED ONE Stop: 03/16/25 17:31 Last Admin: 03/16/25 17:48 Dose: Not Given Documented By: WANG Dextrose (Dextrose 10% 250 Ml Bag) Confirm Administered Dose 250 ml IV .STK-MED ONE Stop: 03/16/25 17:58 Last Admin: 03/16/25 18:16 Dose: Not Given Documented By: WANG Dextrose (Dextrose 10% 250 Ml Bag) 250 ml IV NOW STA Stop: 03/16/25 18:15 Last Admin: 03/16/25 18:15 Dose: 250 ml Documented By: WANG Sodium Chloride (Nss) 1,000 mls @ 999 mls/hr IV .Q1H1M ONE Stop: 03/16/25 14:44 Last Infusion: 03/16/25 15:10 Dose: Infused Documented By: Admin: 03/16/25 13:58 Dose: 999 mls/hr Documented By: DANIEL Sodium Chloride (Nss) 250 mls @ 999 mls/hr IV .Q16M ONE Stop: 03/16/25 17:09 Last Infusion: 03/16/25 18:57 Dose: Infused Documented By: Admin: 03/16/25 16:59 Dose: 999 mls/hr Documented By: MADELYN Sodium Chloride (Nss) 1,000 mls @ 999 mls/hr IV .Q1H1M ONE Stop: 03/16/25 19:02 Last Infusion: 03/16/25 19:17 Dose: Infused Documented By: Admin: 03/16/25 18:15 Dose: 999 mls/hr Documented By: WANG Piperacillin Sod/Tazobactam Sod (Zosyn) 4.5 gm in 100 mls @ 200 mls/hr IV NOW ONE; Protocol Stop: 03/16/25 18:48 Last Admin: 03/16/25 22:36 Dose: Not Given Documented By: SIOMARA Lactated Ringer's (Lr) 1,000 mls @ 80 mls/hr IV .[id number] JOE Stop: 03/17/25 20:44 Last Admin: 03/16/25 20:21 Dose: Not Given Documented By: KAYLA Piperacillin Sod/Tazobactam Sod (Zosyn) 4.5 gm in 100 mls @ 200 mls/hr IV NOW ONE; Protocol Stop: 03/16/25 21:44 Last Infusion: 03/16/25 21:47 Dose: Infused Documented By: Admin: 03/16/25 21:17 Dose: 200 mls/hr Documented By: SIOMARA Lactated Ringer's (Lr) 1,000 mls @ 999 mls/hr IV .Q1H1M ONE Stop: 03/17/25 04:30 Last Infusion: 03/17/25 07:57 Dose: Infused Documented By: Admin: 03/17/25 03:41 Dose: 999 mls/hr Documented By: SIOMARA Potassium Chloride (K Tank / Wtr) 10 meq in 100 mls @ 100 mls/hr IV Q1H JOE Stop: 03/17/25 14:14 Last Infusion: 03/17/25 15:36 Dose: Infused Documented By: Admin: 03/17/25 14:28 Dose: 100 mls/hr Documented By: Infusion: 03/17/25 14:23 Dose: Infused Documented By: Admin: 03/17/25 13:23 Dose: 100 mls/hr Documented By: VALERIE Magnesium Sulfate/Dextrose (Magnesium Sulfate / D5w) 1 gm in 100 mls @ 50 mls/hr IV ONE ONE Stop: 03/17/25 14:09 Last Infusion: 03/17/25 15:36 Dose: Infused Documented By: Admin: 03/17/25 13:22 Dose: 50 mls/hr Documented By: VALERIE Ioversol (Optiray 320 100ml) 95 ml IV ONCE ONE Stop: 03/16/25 17:53 Last Admin: 03/16/25 17:56 Dose: 95 ml Documented By: ALANIS Ondansetron HCl (Ondansetron Inj 2 Mg/Ml 2 Ml Vial) 4 mg IV NOW STA Stop: 03/16/25 13:45 Last Admin: 03/16/25 13:58 Dose: 4 mg Documented By: DANIEL Ondansetron HCl (Ondansetron Inj 2 Mg/Ml 2 Ml Vial) 4 mg IV NOW STA Stop: 03/16/25 20:17 Last Admin: 03/16/25 20:47 Dose: 4 mg Documented By: SIOMARA Imaging Data Radiologist's Impression: Abdomen/Pelvis CT 03/16/25 16:55 EXAMINATION: CT of the abdomen and pelvis performed after the administration of IV contrast TECHNIQUE: Helical CT images from the lung bases through the symphysis pubis were obtained with contrast. Coronal and sagittal reformatted images were generated at a workstation for further assessment. Dose reduction techniques were achieved by using automatic exposure control and/or adjustment of mA and/or kV according to patient size and/or use of iterative reconstruction technique. COMPARISON: None HISTORY: Abdominal pain FINDINGS: Lower chest: No consolidation. No pleural effusion or pneumothorax. Liver: No suspicious liver lesions. Portal veins appear patent. Gallbladder: No gallstones. No evidence of acute cholecystitis. Spleen: Normal size. Pancreas: No suspicious pancreatic lesions. The pancreatic duct is not dilated. Adrenal glands: No adrenal nodules. Kidneys: No hydronephrosis or obstructing renal stones. Bladder / Pelvic organs: Unremarkable. Bowel: No bowel obstruction. No abnormal bowel wall thickening. The appendix is unremarkable. Lymph nodes: No retroperitoneal, mesenteric, or pelvic lymphadenopathy. Peritoneum / Retroperitoneum: No free fluid or air within the abdomen. Vessels: No infrarenal aortic aneurysm. Bones and soft tissues: No suspicious lesion in the bones. Bilateral hip dysplasia. Paraspinal rods fixating into the iliac bones. IMPRESSION: No acute finding in the abdomen or pelvis Electronically signed by Doc Leon 03-16-2025 6:10 PM Chest X-Ray 03/16/25 16:55 Chest radiograph, one view History: Chest pain Comparison: None Findings: Single AP view of the chest performed. No focal consolidation or pleural effusion. No pneumothorax. Narrow deformity of the upper chest wall. Prominent thoracic levoscoliosis. The cardiomediastinal silhouette is within normal limits. Normal pulmonary vascularity. No evidence for lymphadenopathy. No visualized bony or soft tissue abnormality. Extensive fixation changes of the spine. Impression: Normal chest radiograph Electronically signed by Doc Leon 03-16-2025 6:08 PM Discharge Plan Visit Data Chief Complaint: Vomiting Stated Complaint: NAUSEA, VOMITING ED Provider: Morteza Reed ED Midlevel Provider: Maria Luisa Proctor Discharge Problem: Hypotension, Sepsis, Nausea vomiting and diarrhea Patient Disposition: Admitted As Inpatient Condition: Good Discharge Instructions Interventions: ED Discharge Assessment Last Done: 03/16/25 20:21 Discharge Problem: Sepsis Qualifiers: Sepsis type: sepsis due to unspecified organism Sepsis acute organ dysfunction status: unspecified Qualified Code(s): A41.9 - Sepsis, unspecified organism
[2025-03-16] MEDS: OPTIRAY 320 100ml IV ONE (17:56)
--- NOTE | 2025-03-16 18:14 | CT Scan Report ---
EXAMINATION: CT of the abdomen and pelvis performed after the administration of IV contrast TECHNIQUE: Helical CT images from the lung bases through the symphysis pubis were obtained with contrast. Coronal and sagittal reformatted images were generated at a workstation for further assessment. Dose reduction techniques were achieved by using automatic exposure control and/or adjustment of mA and/or kV according to patient size and/or use of iterative reconstruction technique. COMPARISON: None HISTORY: Abdominal pain FINDINGS: Lower chest: No consolidation. No pleural effusion or pneumothorax. Liver: No suspicious liver lesions. Portal veins appear patent. Gallbladder: No gallstones. No evidence of acute cholecystitis. Spleen: Normal size. Pancreas: No suspicious pancreatic lesions. The pancreatic duct is not dilated. Adrenal glands: No adrenal nodules. Kidneys: No hydronephrosis or obstructing renal stones. Bladder / Pelvic organs: Unremarkable. Bowel: No bowel obstruction. No abnormal bowel wall thickening. The appendix is unremarkable. Lymph nodes: No retroperitoneal, mesenteric, or pelvic lymphadenopathy. Peritoneum / Retroperitoneum: No free fluid or air within the abdomen. Vessels: No infrarenal aortic aneurysm. Bones and soft tissues: No suspicious lesion in the bones. Bilateral hip dysplasia. Paraspinal rods fixating into the iliac bones. IMPRESSION: No acute finding in the abdomen or pelvis Electronically signed by Doc Leon 03-16-2025 6:10 PM
--- NOTE | 2025-03-16 18:14 | XRay Report ---
Chest radiograph, one view History: Chest pain Comparison: None Findings: Single AP view of the chest performed. No focal consolidation or pleural effusion. No pneumothorax. Narrow deformity of the upper chest wall. Prominent thoracic levoscoliosis. The cardiomediastinal silhouette is within normal limits. Normal pulmonary vascularity. No evidence for lymphadenopathy. No visualized bony or soft tissue abnormality. Extensive fixation changes of the spine. Impression: Normal chest radiograph Electronically signed by Doc Leon 03-16-2025 6:08 PM
[2025-03-16] MEDS: DEXTROSE 10% 250 ML BAG IV STA (18:15)
[2025-03-16] MEDS: DEXTROSE 10% 250 ML BAG IV ONE (18:16)
--- NOTE | 2025-03-16 18:30 | History & Physical Report ---
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 #Nausea, vomiting, and diarrhea | sepsis | suspect viral GI illness Abdomen/pelvic CT did not reveal acute findings Leukocytosis elevated at 22.17; hypotensive at 80/45, tachycardic at 134 bpm, tachypneic at 30 RPM at time of admission No clear source, but suspect viral GI illness based on patient's presenting symptoms; ?norovirus Lactate WNL Procalcitonin WNL BCx ordered, however only 1 tube was able to be obtained due to patient having poor venous access IV team has been contacted IV bolus with NSS 2250mL to meet for 30 cc/kg sepsis bolus of fluids PCR stool ordered, pending Magnesium ordered, pending Zosyn 4.5 g IV q8h to start after BCxs drawn IV antiemetics PRN Clear liquid diet; advance as tolerated #Spinal muscular atrophy Wheelchair-bound at baseline Currently on risdiplam; non-formulary; continue if able to bring in from home #Hypotension Hypotensive at 80/45 on admission Quickly improved to 103/67 with IV bolus (as above) Continue IVF maintenance with LR at 80mL/hr x 2 L Random cortisol ordered, pending #Hypoglycemia Glucose 40 on arrival Oral challenge Dextrose 10% x 250 mL Glucose on 1h recheck is 141 Patient denies prior history of diabetes, but reports no prior episodes of hypoglycemia that low Disposition: Admit to PCU telemetry VTE PPx: Lovenox 30mg SQ q24h History of Present Illness Chief Complaint: Nausea, vomiting, diarrhea Primary Care Provider: Flavio Vicente MD Mr. Bell is a 19-year-old male without significant PMH. 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 Patient first developed symptoms on Friday when he started vomiting and had 2 episodes of diarrhea. He then felt better on Friday, but started having vomiting again on Friday at 5 AM, 8 AM, and 11 AM. Patient has not taken any home medications for his symptoms. He was unable to keep down solids, liquids up until he came to the hospital and received Zofran; since that time he has been able to keep down some apple juice. While he had 2 episodes of diarrhea, he has not had a bowel movement since this time. No recent changes in diet. No sick contacts to his knowledge. Patient is cu rrently a [employer] student ([employer]onz[employer] studying human resources). He lives in a single dorm with 24-hour nursing care. Patient is wheelchair-bound at baseline due to history of spinal muscular atrophy. The only medication he takes on a daily basis is his daily supplement (Risdiplam). Additional symptoms include esophageal/chest pain (which patient attributes to throwing up), as well as chest palpitations (which he reports are normal whenever he gets sick). He denies any rashes or tick bites; however, he does have a known ulcer/wound on his right lateral malleolus. While this originally had purulent drainage a couple weeks ago, it is currently being watched by his nurse, he reports that overall it has been improving. Patient is hypotensive at 80/45, tachycardic at 141 bpm, and tachypneic at 30 RPM at time of admission. ED course: 10% dextrose x 250 mL NSS 1000 L IV x 2 Zofran 4 mg IV ROS: Patient endorses nausea, vomiting, diarrhea, burning chest pain from vomiting (esophageal), and fast heart rate/chest palpitations. Patient denies fever, chills, night sweats, pleuritic CP, shortness of breath, cough, abdominal pain, burning with urination, or blood in the urine or stool. Allergies Allergy/AdvReac Type Severity Reaction Status Date / Time No Known Allergies Allergy Unverified 03/16/25 15:30 Home Medications Medication Instructions Recorded Confirmed Type risdiplam 0.75 mg/mL oral solution 0.75 mg PO UD 03/16/25 03/16/25 History (Evrysdi) Past Med/Surg History Problem List (Updated 03/16/25 @ 19:30 by Nima Hickey PA-C) Spinal muscular atrophy Hypotension Hypoglycemia Viral gastroenteritis Sepsis Nausea vomiting and diarrhea Social History Smoking Status: Never smoker Preferred Language: Vietnamese Feels Safe at Home: Yes Review of Systems Review of Systems: See HPI above Physical Exam Physical Exam: General: no acute distress; pleasant affect; cousin ([place]) at bedside; non- toxic appearing; cooperative; SpO2 96% on RA HEENT: normocephalic, atraumatic; PERRLA; vision and hearing intact Neck: supple; trachea midline Skin: warm, dry without signs of tenting; no cyanosis; no rashes, bruising, lesions, or erythema noted CV: chest wall NTP; pectus excavatum; RR, tachycardic at 130 bpm; pulses intact and symmetric at radial, DP, and PT Lungs: no acute respiratory distress; symmetrical chest wall expansion; clear breath sounds across all lung penny w/o adventitious sounds; no wheezing ABD: Soft, NTP; BS present; no rebound/guarding; no distention MSK: no tics or fasciculations; upper and lower extremities with muscular atrophy/internal rotation Neuro: A&Ox3; normal mood and affect; fluent speech; sensation intact and symmetric in the LEs b/l Results & Data Results & Data Vital Signs (Past 12 Hours) Vital Signs Temp Pulse Pulse Pulse Resp BP BP 03/16/25 18:00 141 H 30 H 80/45 L 03/16/25 16:34 125 H 18 96/59 L 03/16/25 13:14 16 03/16/25 13:14 36.6 C 138 H 18 99/66 L Pulse Ox O2 Del Method 03/16/25 18:00 96 Room Air 03/16/25 16:34 96 Room Air 03/16/25 13:14 03/16/25 13:14 94 Room Air Laboratory Results Abnormal lab results 03/16/25 03/16/25 03/16/25 Range/Units 15:06 15:28 16:39 WBC 22.17 H (4.8-10.8) K/ul POC Hgb (14.0-18.0) g/dl POC Hct (42-52) % Neut # (Auto) 19.27 H (1.40-6.50) K/uL Lymph # (Auto) 0.84 L (1.20-3.40) K/uL [place] # (Auto) 1.80 H (0.11-0.59) K/uL Chloride 108 H (98-107) mmol/L Carbon Dioxide 13 L (21-32) mmol/L POC Total CO2 (24-31) mmol/L Anion Gap 21 H (3-11) Creatinine < 0.20 L (0.6-1.4) mg/dl POC Creatinine (0.6-1.3) mg/dl Glucose 40 L* (70-99(Fasting)) mg/dl POC Glucose (70-99) mg/dl POC Glucose (other) (70-99) mg/dl Calcium 8.0 L (8.6-10.3) mg/dl POC Ioniz Calcium Lizette (1.12-1.32) mmol/l C-Reactive Protein 1.67 H (0-0.5) mg/dl Globulin 2.2 L (2.5-4.0) gm/dl Urine Protein 1+ H (Negative) Urine Ketones 4+ H (Negative) Urine Blood 2+ H (Negative) Urine RBC (Auto) >20 H (0-2) /hpf U Hyaline Cast (Auto) 3-5 H (0-2) /lpf 03/16/25 03/16/25 03/16/25 Range/Units 17:23 17:27 17:55 WBC (4.8-10.8) K/ul POC Hgb 13.3 L (14.0-18.0) g/dl POC Hct 39 L (42-52) % Neut # (Auto) (1.40-6.50) K/uL Lymph # (Auto) (1.20-3.40) K/uL [place] # (Auto) (0.11-0.59) K/uL Chloride (98-107) mmol/L Carbon Dioxide (21-32) mmol/L POC Total CO2 15 L (24-31) mmol/L Anion Gap (3-11) Creatinine (0.6-1.4) mg/dl POC Creatinine < 0.2 L (0.6-1.3) mg/dl Glucose (70-99(Fasting)) mg/dl POC Glucose 41 L* 46 L* (70-99) mg/dl POC Glucose (other) 40 L* (70-99) mg/dl Calcium (8.6-10.3) mg/dl POC Ioniz Calcium [place] 0.96 L (1.12-1.32) mmol/l C-Reactive Protein (0-0.5) mg/dl Globulin (2.5-4.0) gm/dl Urine Protein (Negative) Urine Ketones (Negative) Urine Blood (Negative) Urine RBC (Auto) (0-2) /hpf U Hyaline Cast (Auto) (0-2) /lpf Diagnostic Findings Abdomen/Pelvis CT 03/16/25 16:55 EXAMINATION: CT of the abdomen and pelvis performed after the administration of IV contrast TECHNIQUE: Helical CT images from the lung bases through the symphysis pubis were obtained with contrast. Coronal and sagittal reformatted images were generated at a workstation for further assessment. Dose reduction techniques were achieved by using automatic exposure control and/or adjustment of mA and/or kV according to patient size and/or use of iterative reconstruction technique. COMPARISON: None HISTORY: Abdominal pain FINDINGS: Lower chest: No consolidation. No pleural effusion or pneumothorax. Liver: No suspicious liver lesions. Portal veins appear patent. Gallbladder: No gallstones. No evidence of acute cholecystitis. Spleen: Normal size. Pancreas: No suspicious pancreatic lesions. The pancreatic duct is not dilated. Adrenal glands: No adrenal nodules. Kidneys: No hydronephrosis or obstructing renal stones. Bladder / Pelvic organs: Unremarkable. Bowel: No bowel obstruction. No abnormal bowel wall thickening. The appendix is unremarkable. Lymph nodes: No retroperitoneal, mesenteric, or pelvic lymphadenopathy. Peritoneum / Retroperitoneum: No free fluid or air within the abdomen. Vessels: No infrarenal aortic aneurysm. Bones and soft tissues: No suspicious lesion in the bones. Bilateral hip dysplasia. Paraspinal rods fixating into the iliac bones. IMPRESSION: No acute finding in the abdomen or pelvis Electronically signed by Doc Leon 03-16-2025 6:10 PM Chest X-Ray 03/16/25 16:55 Chest radiograph, one view History: Chest pain Comparison: None Findings: Single AP view of the chest performed. No focal consolidation or pleural effusion. No pneumothorax. Narrow deformity of the upper chest wall. Prominent thoracic levoscoliosis. The cardiomediastinal silhouette is within normal limits. Normal pulmonary vascularity. No evidence for lymphadenopathy. No visualized bony or soft tissue abnormality. Extensive fixation changes of the spine. Impression: Normal chest radiograph Electronically signed by Doc Leon 03-16-2025 6:08 PM Code Status & VTE Plan VTE Prophylaxis Plan VTE Prophylaxis will be ordered: Yes PG Care Time/CCT Total # of Minutes Spent Total Time Spent with Patient: Total time spent is greater than 50% in coordination of care (as documented) at patient's floor/unit and/or counseling patient: [place] [address] INT INP/OBS CARE 3/75MIN Patient Type New History Comprehensive Exam Comprehensive Medical Decision Making High Complexity Diagnoses Nausea vomiting and diarrhea R11.2; R19.7 Sepsis A41.9 Viral gastroenteritis A08.4 Hypoglycemia E16.2 Hypotension I95.9 Spinal muscular atrophy G12.9"
[2025-03-16] MEDS: LACTATED RINGER'S 1,000 ML IV SCH (20:21)
[2025-03-16] MEDS ORDERED: ONDANSETRON INJ 2 MG/ML 2 ML VIAL IV PRN (20:44)
[2025-03-16] MEDS ORDERED: PROCHLORPERAZINE 5 MG in SYRINGE 4 ML IV PRN (20:44)
[2025-03-16] MEDS ORDERED: MELATONIN 3 MG TAB PO PRN (20:44)
[2025-03-16] MEDS ORDERED: ACETAMINOPHEN 325 MG TAB PO PRN (20:44)
[2025-03-16] MEDS: D5W AND LACTATED RINGERS 1,000 ML IV SCH (20:47)
[2025-03-16] MEDS: PIPERACILLIN/TAZOBACTAM 4.5 GM/100 ML BAG IV ONE ×2 (21:17→22:36)
[2025-03-17] MEDS: PIPERACILLIN/TAZOBACTAM 4.5 GM/100 ML BAG IV SCH (03:41)
[2025-03-17] MEDS: LACTATED RINGER'S 1,000 ML IV ONE (03:41)
[2025-03-17 06:07] LABS: Hematocrit (blood only) 36.7 % (42.0-52.0); Hemoglobin 12.7 g/dL (14.0-18.0); Immature Granulocytes # (auto) 0.05 K/uL (0.01-0.20); Immature Granulocytes % (auto) 0.5 %; Mean Corpuscular Hemoglobin 29.3 pg (25.0-34.0); Mean Corpuscular Volume 84.6 fL (80.0-100.0); Platelet Count 218 K/uL (130-400); RDW Standard Deviation 43.7 fL (36.4-46.3); Red Blood Count 4.34 M/uL (4.70-6.10); White Blood Count 10.55 K/ul (4.8-10.8)
[2025-03-17 06:30] LABS: Anion Gap 7 (3-11); Blood Urea Nitrogen 4 mg/dl (6-23); Calcium 7.9 mg/dl (8.6-10.3); Carbon Dioxide 23 mmol/L (21-32); Chloride 108 mmol/L (98-107); Glucose 101 mg/dl (70-99(Fasting)); Magnesium 1.7 mg/dl (1.7-2.4); Potassium 3.1 mmol/L (3.5-5.1); Sodium 138 mmol/L (136-145)
[2025-03-17] MEDS: ENOXAPARIN INJ 30 MG/0.3 ML SYR SQ SCH (08:40)
[2025-03-17] MEDS: MAGNESIUM SULFATE / D5W 1 GM/100 ML BAG IV ONE (13:22)
[2025-03-17] MEDS: POTASSIUM CHLORIDE / WTR 10 MEQ/100 ML PLCT IV SCH (13:23)
--- NOTE | 2025-03-17 14:39 | Hospitalist Progress Note ---
"Date of Service March 17, 2025 Assessment & Plan (1) Hypotension: (2) Nausea vomiting and diarrhea: (3) Sepsis: (4) Viral gastroenteritis: (5) Hypoglycemia: (6) Spinal muscular atrophy: Plan This patient is a 19-year-old male with PMH of spinal muscular atrophy who presented on 03/16 for N/V/D x 2 days [employer]. #Recurrent episodes of hypotension Hypotensive at 80/45 on admission Quickly improved to 103/67 with IV bolus (as above) Random cortisol WNL However, patient dropped again overnight on 03/17 to 85/53 (requiring 1L LR bolus) Continue IVF maintenance with LR at 80mL/hr #Nausea, vomiting, and diarrhea | sepsis | suspect viral GI illness (improving) Abdomen/pelvic CT did not reveal acute findings Leukocytosis trend 22.17 -> 10.55 (resolved) Suspect viral GI illness based on patient's presenting symptoms; ?norovirus Lactate WNL Procalcitonin WNL BCx x 2; NGTD so far on 03/17 IV bolus with NSS 2250mL to meet for 30 cc/kg sepsis bolus of fluids PCR stool ordered, pending Continue Zosyn 4.5 g IV q8h IV antiemetics PRN Patient tolerated clear liquid diet on 03/17, advance to regular diet #Hypokalemia Replete magnesium and potassium as needed for GI losses #Spinal muscular atrophy Wheelchair-bound at baseline Currently on risdiplam; non-formulary; continue if able to bring in from home #Hypoglycemia (resolved) Glucose 40 on arrival; resolved after administration of dextrose 10% x 250 mL Disposition: Continued stay on PCU telemetry in setting of hypotension; hopeful discharge home tomorrow 03/18 assuming no setbacks/episodes of severe hypotension VTE PPx: Lovenox 30mg SQ q24h Admission and Anticipated Discharge Date Admission Date: March 16, 2025 Subjective Mr. Bell is doing well this morning. He reports that most of his symptoms have fully resolved. He was able to tolerate a clear liquid diet for breakfast without nausea, vomiting, abdominal pain, or abdominal bloating. He is eager to advance to a regular diet this afternoon if possible. No fevers overnight. Patient still has not had a bowel movement in the hospital yet. He is otherwise asymptomatic at this time. ROS: Patient denies fevers overnight, chills, night sweats, dizziness/lightheadedness with movements, headaches, chest pain, chest palpitations, SOB, cough, abdominal pain after eating, abdominal bloating, nausea, vomiting, recurrence of diarrhea, or blood in the urine or stool. Review of Systems Review of Systems: See HPI above Physical Exam Physical Exam: General: no acute distress; pleasant affect; mother ([place]) at bedside; non- toxic appearing; cooperative; SpO2 97% on RA HEENT: normocephalic, atraumatic; PERRLA; vision and hearing intact Neck: supple; trachea midline Skin: warm, dry without signs of tenting; no cyanosis; no rashes, bruising, lesions, or erythema noted CV: chest wall NTP; pectus excavatum; RR, tachycardic at 130 bpm; pulses intact and symmetric at radial, DP, and PT Lungs: no acute respiratory distress; symmetrical chest wall expansion; clear breath sounds across all lung penny w/o adventitious sounds; no wheezing ABD: Soft, NTP; BS present; no rebound/guarding; no distention MSK: no tics or fasciculations; upper and lower extremities with muscular atrophy/internal rotation Neuro: A&Ox3; normal mood and affect; fluent speech; sensation intact and symmetric in the LEs b/l Results & Data Results & Data Vital Signs (Past 12 Hours) Vital Signs Temp Pulse Pulse Resp BP BP Pulse Ox 03/17/25 07:51 36.8 C 94 H 21 130/76 97 03/17/25 07:00 100 H 03/17/25 03:32 113/52 L 03/17/25 02:58 37.0 C 99 H 16 85/53 L 88/47 L 93 O2 Del Method 03/17/25 07:51 Room Air 03/17/25 07:00 03/17/25 03:32 03/17/25 02:58 Room Air PG Care Time/CCT Total # of Minutes Spent Total Time Spent with Patient: Total time spent is greater than 50% in coordination of care (as documented) at patient's floor/unit and/or counseling patient: Coding [place] [address] SUB INP/OBS CARE 2/35MIN Patient Type Established History Comprehensive Exam Comprehensive Medical Decision Making Moderate Complexity Diagnoses Hypotension I95.9 Nausea vomiting and diarrhea R11.2; R19.7 Sepsis A41.9 Viral gastroenteritis A08.4 Hypoglycemia E16.2 Spinal muscular atrophy G12.9"
[2025-03-17 21:40] LABS: Adenovirus F 40/41 PCR Not Detected (NotDetected); Campylobacter PCR Not Detected (NotDetected); Enteroaggregative E.coli(EAEC) Not Detected (NotDetected); Shiga-like Toxin E.coli (STEC) Not Detected (NotDetected); Vibrio species PCR Not Detected (NotDetected)
[2025-03-18 06:34] LABS: Hematocrit (blood only) 37.3 % (42.0-52.0); Hemoglobin 12.7 g/dL (14.0-18.0); Immature Granulocytes # (auto) 0.02 K/uL (0.01-0.20); Immature Granulocytes % (auto) 0.3 %; Mean Corpuscular Hemoglobin 28.9 pg (25.0-34.0); Mean Corpuscular Volume 85.0 fL (80.0-100.0); Platelet Count 218 K/uL (130-400); RDW Standard Deviation 44.3 fL (36.4-46.3); Red Blood Count 4.39 M/uL (4.70-6.10); White Blood Count 6.44 K/ul (4.8-10.8)
[2025-03-18 07:02] LABS: Anion Gap 5 (3-11); Blood Urea Nitrogen 3 mg/dl (6-23); Calcium 7.8 mg/dl (8.6-10.3); Carbon Dioxide 29 mmol/L (21-32); Chloride 105 mmol/L (98-107); Glucose 102 mg/dl (70-99(Fasting)); Potassium 3.4 mmol/L (3.5-5.1); Sodium 139 mmol/L (136-145)
[2025-03-18 07:55] VITALS: RESP 22; TEMP 98.1; O2SAT 95
--- NOTE | 2025-03-18 08:03 | Discharge Summary ---
Discharge Summary Date of Service March 18, 2025 Principal Dx & Hospital Course #1 = Principal Diagnosis (1) Hypotension: (2) Nausea vomiting and diarrhea: (3) Sepsis: (4) Viral gastroenteritis: (5) Hypoglycemia: (6) Spinal muscular atrophy: (7) Pressure ulcer of ankle, right, unstageable: Plan This patient is a 19-year-old male with PMH of spinal muscular atrophy who presented on 03/16 for N/V/D x 2 days [employer]. #Recurrent episodes of hypotension (improving) Hypotensive at 80/45 on admission Quickly improved to 103/67 with IV bolus (as above) Random cortisol WNL However, patient dropped again overnight on 03/17 to 85/53 (requiring 1L LR bolus) Continue IVF maintenance with LR at 80mL/hr 03/18 update: Lowest BP 99/61, and mildly tachycardic at 113 bpm last night, but otherwise vitals have been stable x 24 hours #Nausea, vomiting, and diarrhea | sepsis | suspect viral GI illness (resolved) Abdomen/pelvic CT did not reveal acute findings Leukocytosis trend 22.17 -> 10.55 -> 6.44 (resolved) Suspect viral GI illness based on patient's presenting symptoms Lactate WNL Procalcitonin WNL IV bolus with NSS 2250mL to meet for 30 cc/kg sepsis bolus of fluids PCR stool negative Empiric Zosyn 4.5 g IV q8h x 2 days inpatient IV antiemetics PRN Patient tolerated clear liquid diet morning of 03/17, advance to regular diet without setbacks BCx x 2 resulted in NGTD Will defer additional antibiotics upon discharge #Hypokalemia Intermittently repleted magnesium and potassium as needed for GI losses from diarrhea Recommend outpatient BMP prior to transitional care appointment to ensure stability #Spinal muscular atrophy Wheelchair-bound at baseline Continue risdiplam #Pressure ulcer of right lateral malleolus, stage 1, POA Healing x 2 weeks; noted on arrival; do not suspect this is the cause for acute illness Continue OP wound care on d/c #Hypoglycemia (resolved) Glucose 40 on arrival; resolved after administration of dextrose 10% x 250 mL Day of discharge 03/18: VSS Mr. Bell is in good spirits this morning. He had some difficulty sleeping in the hospital last night, but reports full resolution of his nausea, vomiting, and diarrhea. He did have a bowel movement last night which was solid. He has also been advance to a full/regular diet without setbacks. He he is eating pancakes this morning he denies any abdominal pain, nausea, vomiting, or abdominal bloating. Overall, he feels well, and is hoping to be discharged today. ROS: Patient denies fevers, chills, night sweats, chest pain, chest palpitations, SOB, cough, abdominal pain after eating, N/V/D (resolved), or blood in the urine or stool. Disposition: Discharge home Notes For Next Care Provider Patient hospitalized for a viral GI illness/sepsis. Recurrent hypotension throughout his hospital stay (with a low of 80/45), but would quickly improved with IV fluid boluses. Will plan to discharge patient on Zofran 4 mg ODT tablets as needed. Recommend follow-up BMP as an outpatient to ensure stability of electrolyte levels in the setting of GI losses. Admission HPI Per Admitting Provider Mr. Bell is a 19-year-old male without significant PMH. He presented on 03/16 for N/V/D x 2 days [employer]. Patient first developed symptoms on Friday when he started vomiting and had 2 episodes of diarrhea. He then felt better on Friday, but started having vomiting again on Friday at 5 AM, 8 AM, and 11 AM. Patient has not taken any home medications for his symptoms. He was unable to keep down solids, liquids up until he came to the hospital and received Zofran; since that time he has been able to keep down some apple juice. While he had 2 episodes of diarrhea, he has not had a bowel movement since this time. No recent changes in diet. No sick contacts to his knowledge. 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 He lives in a single dorm with 24-hour nursing care. Patient is wheelchair-bound at baseline due to history of spinal muscular atrophy. The only medication he takes on a daily basis is his daily supplement (Risdiplam). Additional symptoms include esophageal/chest pain (which patient attributes to throwing up), as well as chest palpitations (which he reports are normal whenever he gets sick). He denies any rashes or tick bites; however, he does have a known ulcer/wound on his right lateral malleolus. While this originally had purulent drainage a couple weeks ago, it is currently being watched by his nurse, he reports that overall it has been improving. Patient is hypotensive at 80/45, tachycardic at 141 bpm, and tachypneic at 30 RPM at time of admission. ED course: 10% dextrose x 250 mL NSS 1000 L IV x 2 Zofran 4 mg IV ROS: Patient endorses nausea, vomiting, diarrhea, burning chest pain from vomiting (esophageal), and fast heart rate/chest palpitations. Patient denies fever, chills, night sweats, pleuritic CP, shortness of breath, cough, abdominal pain, burning with urination, or blood in the urine or stool. Admission Exam Per Admitting Provider General: no acute distress; pleasant affect; cousin ([place]) at bedside; non- toxic appearing; cooperative; SpO2 96% on RA HEENT: normocephalic, atraumatic; PERRLA; vision and hearing intact Neck: supple; trachea midline Skin: warm, dry without signs of tenting; no cyanosis; no rashes, bruising, lesions, or erythema noted CV: chest wall NTP; pectus excavatum; RR, tachycardic at 130 bpm; pulses intact and symmetric at radial, DP, and PT Lungs: no acute respiratory distress; symmetrical chest wall expansion; clear breath sounds across all lung penny w/o adventitious sounds; no wheezing ABD: Soft, NTP; BS present; no rebound/guarding; no distention MSK: no tics or fasciculations; upper and lower extremities with muscular atrophy/internal rotation Neuro: A&Ox3; normal mood and affect; fluent speech; sensation intact and symmetric in the LEs b/l Discharge Exam General: no acute distress; pleasant affect; sitting upright in bed eating pancakes; mother ([place]) at bedside; non-toxic appearing; cooperative; SpO2 95% on RA HEENT: normocephalic, atraumatic; PERRLA; vision and hearing intact Neck: supple; trachea midline Skin: warm, dry without signs of tenting; no cyanosis; no rashes, bruising, lesions, or erythema noted CV: chest wall NTP; pectus excavatum; RRR around 90 bpm; pulses intact and symmetric at radial, DP, and PT Lungs: no acute respiratory distress; symmetrical chest wall expansion; clear breath sounds across all lung penny w/o adventitious sounds; no wheezing ABD: Soft, NTP; BS present; no rebound/guarding; no distention MSK: upper and lower extremities with muscular atrophy/internal rotation Neuro: A&Ox3; normal mood and affect; fluent speech; patient reports sensation is intact and symmetric in the upper and lower extremities bilaterally assessed via light touch Discharge Plan Discharge Items Patient Disposition: Home - Self-Care Reason For Visit: SEPSIS, GI ILLNESS Discharge Diagnosis: Sepsis, nausea, vomiting, diarrhea, GI illness Condition on Discharge: Good Activity: Resume your previous activity Non-emergency contact: Primary Care Provider Call non-emergency contact if: you have any medication questions, your symptoms worsen and you have a fever Follow-up/Referrals: Flavio Vicente MD [Primary Care Provider] - (Please call the office to schedule a hospital follow up appointment.) Diet: Regular Addtl Attending Provider Instructions: You were hospitalized at [facility] from 03/16 to 03/18 after developing intractable nausea, vomiting, and diarrhea. On arrival, you had an elevated white blood cell count at 22 (normal reference range 5-11). Your blood pressure also dropped to 80/45, and your other vitals were consistent with a septic infection (i.e. an infection that can become life-threatening if not treated). You received IV fluids, IV nausea medications, and IV antibiotic called Zosyn while in the hospital. Your potassium and magnesium levels were also repleted intermittently. Over the course your hospital stay, you reported gradual improvement in your symptoms, and your diet was advanced from a clear liquid diet to full/regular without any setbacks. Blood cultures taken on arrival were negative for growth, and a stool sample was obtained which did not detect any of the more severe GI viruses (such as norovirus, or rotavirus). Given your vitals have remained stable, resolution of your symptoms, and no elevated white blood cell count we feel that you are safe to return home at this time. New prescriptions on discharge: Ondansetron ("Zofran") 4 mg oral dissolvable tablets to be taken every 8 hours as needed for nausea and vomiting Please plan to follow-up with your PCP in the next 7 to 10 days for a transitional care appointment. Prior to this appointment, we recommend that you have blood work done to assess your electrolyte levels to ensure stability. If you develop any new or worsening symptoms, such as fever, chills, chest pain, trouble breathing, intractable nausea/vomiting/diarrhea, blood in your stool, or intense abdominal pain, please return to the emergency department immediately. It was a pleasure taking care of you. Please reach out with any questions or concerns. Sincerely, The Hospital medicine team at [facility] Pending Studies at Discharge: No Stand-Alone Forms: My [facility], Work/School Release Medications and DC Order Prescriptions: New ondansetron 4 mg tablet,disintegrating 4 mg PO Q8H PRN (Reason: nausea and vomiting) Qty: 14 0RF Rx Instructions: Dissolve 1 tablet under your tongue every 8 hours as needed for nausea and vomiting Continued Evrysdi 0.75 mg/mL recon soln 0.75 mg PO UD Discharge Orders: Discharge Order (Routine); Ordered 03/18/25 Ordered By: Nima Hickey Admission Data Admit Date/Time: 03/16/25 19:42 Attending Provider: Rj Schuler Admit Provider: Rj Schuler Primary Care Provider: Flavio Vicente Other Providers: Juan Carlos Hayden Other Interventions: Discharge Summary Assessment (RN) Last Done: 03/18/25 08:56 Hospital Stay Data Consultations 03/16/25 18:27 ED Decision to Admit Stat Diagnostic Imagining Performed 03/16/25 16:55 CT Abd and Pelvis [CT abd pelvis IV con only] Stat Discharge Instructions Given to Patient (Per Discharging Provider) You were hospitalized at [facility] from 03/16 to 03/18 after developing intractable nausea, vomiting, and diarrhea. On arrival, you had an elevated white blood cell count at 22 (normal reference range 5-11). Your blood pressure also dropped to 80/45, and your other vitals were consistent with a septic infection (i.e. an infection that can become life-threatening if not treated). You received IV fluids, IV nausea medications, and IV antibiotic called Zosyn while in the hospital. Your potassium and magnesium levels were also repleted intermittently. Over the course your hospital stay, you reported gradual improvement in your symptoms, and your diet was advanced from a clear liquid diet to full/regular without any setbacks. Blood cultures taken on arrival were negative for growth, and a stool sample was obtained which did not detect any of the more severe GI viruses (such as norovirus, or rotavirus). Given your vitals have remained stable, resolution of your symptoms, and no elevated white blood cell count we feel that you are safe to return home at this time. New prescriptions on discharge: Ondansetron ("Zofran") 4 mg oral dissolvable tablets to be taken every 8 hours as needed for nausea and vomiting Please plan to follow-up with your PCP in the next 7 to 10 days for a transitional care appointment. Prior to this appointment, we recommend that you have blood work done to assess your electrolyte levels to ensure stability. If you develop any new or worsening symptoms, such as fever, chills, chest pain, trouble breathing, intractable nausea/vomiting/diarrhea, blood in your stool, or intense abdominal pain, please return to the emergency department immediately. It was a pleasure taking care of you. Please reach out with any questions or concerns. Sincerely, The Hospital medicine team at [facility] Total Time Total Time Spent Total Time Spent (In Minutes): 20 Coding Level of Care Code 36324 IN/OBS DISCH 30 MIN/LESS Diagnoses Hypotension I95.9 Nausea vomiting and diarrhea R11.2; R19.7 Sepsis A41.9 Sepsis acute organ dysfunction status: unspecified Sepsis type: sepsis due to unspecified organism Viral gastroenteritis A08.4 Hypoglycemia E16.2 Spinal muscular atrophy G12.9 Pressure ulcer of ankle, right, unstageable L89.510
[2025-03-18] MEDS: POTASSIUM CHLORIDE / WTR 10 MEQ/100 ML PLCT IV ONE (08:12)
[2025-03-18 08:57] VITALS: BP 80/45; PULSE 125
[2025-03-20 22:55] LABS: A calco-baum cmplx NotReported Not Detected (NotDetected); Bact fragilis Not Reported Not Detected (NotDetected); Blood Culture Id Panel PCR Panel Negative (NotDetected); C auris Not Reported Not Detected (NotDetected); Calbicans Not Reported Not Detected (NotDetected); Candida glabrata Not Reported Not Detected (NotDetected); Candida krusei Not Reported Not Detected (NotDetected); Cneoformans/gatti Not Reported Not Detected (NotDetected); Cparapsilosis Not Reported Not Detected (NotDetected); Ctropicalis Not Reported Not Detected (NotDetected); E cloacae compx Not Reported Not Detected (NotDetected); Efaecalis Not Reported Not Detected (NotDetected); Efaecium Not Reported Not Detected (NotDetected); Enterobacterales Not Reported Not Detected (NotDetected); Escherichia coli Not Reported Not Detected (NotDetected); H influenzae Not Reported Not Detected (NotDetected); K aerogenes Not Reported Not Detected (NotDetected); Koxytoca Not Reported Not Detected (NotDetected); Kpneumoniae grp Not Reported Not Detected (NotDetected); Lmonocyt Not Reported Not Detected (NotDetected); N meningitidis Not Reported Not Detected (NotDetected); P aeruginosa Not Reported Not Detected (NotDetected); Proteus spp Not Reported Not Detected (NotDetected); Salmonella spp Not Reported Not Detected (NotDetected); Staph lugdunensis Not Reported Not Detected (NotDetected); Staph spp. Not Reported Not Detected (NotDetected); Staphaureus Not Reported Not Detected (NotDetected); Staphepi Not Reported Not Detected (NotDetected); Stenmaltophilia Not Reported Not Detected (NotDetected); Strep agal(GrpB) Not Reported Not Detected (NotDetected); Strep pneum Not Reported Not Detected (NotDetected); Strep pyog (GrpA) Not Reported Not Detected (NotDetected); Strep spp Not Reported Not Detected (NotDetected)
== END 2025-03-18 09:57 | disposition home or self-care (01) | DRG 872 ==
LOC: ED 13:14 → 2E 19:42